=== PATIENT | male | born 1965 | race Caucasian/White ===

== ENCOUNTER 2022-12-07 07:14 | Day surgery (SDC) | payer BC ==
[2022-12-07] MEDS ORDERED: Ringers Lactate 1,000 ML IV ONE (07:43)
[2022-12-07] MEDS ORDERED: propofoL 200 MG/20 ML VIAL IV ONE ×2 (09:04)
[2022-12-07] MEDS ORDERED: LIDOCAINE 1% MPF 5 ML VIAL ONE (09:04)
[2022-12-07 11:25] VITALS: BP 120/83; TEMP 97.4; O2SAT 98
== END 2022-12-07 10:28 | disposition home or self-care (01) ==
LOC: OR 07:14
PROVIDERS: ATTEND Internal Medicine Gastroenterology
PROC: 0DBN8ZX Excision of Sigmoid Colon, Via Natural or Artificial Opening Endoscopic, Diagnostic (ICD-10-PCS; 2022-12-07)
PROC: 0DBM8ZX Excision of Descending Colon, Via Natural or Artificial Opening Endoscopic, Diagnostic (ICD-10-PCS; principal; 2022-12-07 08:45)
DX: Z12.11 Encounter for screening for malignant neoplasm of colon (principal); K64.8 Other hemorrhoids; D12.4 Benign neoplasm of descending colon; D12.5 Benign neoplasm of sigmoid colon
CPT/HCPCS: 88305; 45385; J2704 ×2; J2001; J7120